=== PATIENT | male | born 1965 | race Caucasian/White ===

== ENCOUNTER 2016-11-09 10:15 | Emergency (ER) | payer OTHER ==
[2016-11-09] MEDS ORDERED: KETOROLAC 60 MG/2 ML VIAL IM STA (11:43)
--- NOTE | 2016-11-09 12:35 | XR ---
EXAMINATION TYPE: XR shoulder complete LT , 3 VIEWS DATE OF EXAM ORDERED: 11/09/2016 HISTORY: Pain. COMPARISON: None. FINDINGS: No fracture, dislocation or other acute osseous lesion is seen. IMPRESSION: NORMAL LEFT SHOULDER.
[2016-11-09 14:03] VITALS: BP 123/75; PULSE 78; RESP 17; TEMP 98
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
== END 2016-11-09 14:33 | disposition home or self-care (01) ==
LOC: EC 10:15
DX: T14.8 Other injury of unspecified body region (principal); I10 Essential (primary) hypertension; F41.9 Anxiety disorder, unspecified; F17.200 Nicotine dependence, unspecified, uncomplicated; Z79.899 Other long term (current) drug therapy; Z88.2 Allergy status to sulfonamides; V49.40XA Driver injured in collision with unspecified motor vehicles in traffic accident, initial encounter; Y92.410 Unspecified street and highway as the place of occurrence of the external cause
CPT/HCPCS: 71101; 72100; 73030; 72125; 70450; 99284; 96372; J1885